=== PATIENT | female | born 1955 | race Caucasian/White ===

== ENCOUNTER 2018-08-09 14:55 | Emergency (ER) | payer BC ==
[~2018-08-09] VITALS: Ht 165.1 cm; Wt 70.1 kg
[2018-08-09 15:05] VITALS: Ht 165.1 cm; Wt 70.1 kg
[2018-08-09] MEDS ORDERED: KETOROLAC 60 MG INJ IM STA (16:41)
--- NOTE | 2018-08-09 17:50 | ERD ---
ER Documentation Chief Complaint Chief Complaint cough and sorethroat upper back pain x3 wks HPI 62-year-old female presents with complaint of cough, sore throat and upper back pain for the past 3 weeks. Nuys any treatments. Patient denies any fevers. Denies wheezing, shortness of breath, chest pain stridor, respiratory distress. Denies allergies. Denies medical problems. ROS All systems reviewed and are negative except as per history of present illness. Allergies Allergies: Coded Allergies: No Known Allergy (Unverified , 08/09/18) PMhx/Soc Hx Alcohol Use: No Hx Substance Use: No Hx Tobacco Use: No Smoking Status: Never smoker FmHx Family History: No diabetes, No coronary disease, No other Physical Exam Vitals Vital Signs Date Temp Pulse Resp B/P (MAP) Pulse Ox O2 O2 Flow FiO2 Time Delivery Rate 08/09/18 99.9 111 18 132/81 95 15:05 (98) Physical Exam Const: No acute distress Head: Atraumatic Eyes: Normal Conjunctiva ENT: Normal External Ears, Nose and Mouth. Neck: Full range of motion. No meningismus. Resp: Clear to auscultation bilaterally Cardio: Regular rate and rhythm, no murmurs Abd: Soft, non tender, non distended. Normal bowel sounds Skin: No petechiae or rashes Back: No midline or flank tenderness Ext: No cyanosis, or edema Neur: Awake and alert Psych: Normal Mood and Affect Results 24 hrs Current Medications Medications Dose Sig/Kaycee Start Time Status Last (Trade) Ordered Route PRN Stop Time Admin Dose Reason Admin Ketorolac 60 mg ONCE STAT 08/09/18 DC 08/09/18 Tromethamine IM 16:41 08/09/18 16:55 (Toradol) 16:45 Procedures/MDM DIAGNOSTIC IMAGING REPORT Patient: LINO TATE : 1955 Age: 62 Sex: F MR #: [id number] DOS: 08/09/18 1641 Ordering MD: SNOW YOON Location: [facility] Room/Bed: PROCEDURE: XR Chest. CLINICAL INDICATION: cough, anterior chest wall pain TECHNIQUE: Single frontal view of the chest COMPARISON: None FINDINGS: Prominent interstitial markings are seen bilaterally. No focal pulmonary consolidation. Tortuous aorta is noted with atherosclerotic calcifications. Cardiac and mediastinal contours otherwise unremarkable. There is no pleural effusion or pneumothorax. Spinal degenerative changes noted. No acute bony abnormality identified. Remaining soft tissues unremarkable. IMPRESSION: Prominent interstitial markings bilaterally, which may be chronic. However, findings can also be seen with a viral or atypical infectious process. No focal consolidation. RPTAT:HCLE shey Ko, Physician Date Time Electronically viewed and signed by shey Ko Physician on 08/09/2018 17:38 cE/ CC: SNOW YOON [phone] Given the length of the illness as well as the x-ray findings, patient will be treated for possible pneumonia with azithromycin. I have low suspicion for strep throat based on history and exam findings, as well as patient not meeting centor criteria for rapid strep testing. I have low suspicion for bacterial sinusitis, pneumonia, tuberculosis, meningitis, pneumothorax, PE, aspirated foreign body, respiratory distress, acute heart failure or other life threatening etiology based on patient history and exam findings. Most likely etiology is viral URI and no further tests are necessary. Patient given rx for promethazine with codeine and ibuprofen. Patient advised to rest and stay well hydrated. Patient discharged with strict ER precautions. Patient advised to follow up with PMD. All questions answered at discharge. Departure Diagnosis: Primary Impression: URI (upper respiratory infection) URI type: unspecified viral URI Qualified Codes: J06.9 - Acute upper respiratory infection, unspecified Condition: Stable SNOW YOON Aug 09, 2018 17:50
[2018-08-09] MEDS ORDERED: PROM5SYR2 PO (17:51)
[2018-08-09] MEDS ORDERED: AZIT250T PO (17:52)
[2018-08-09] MEDS ORDERED: IBUP-1542 PO (17:52)
[2018-08-09 17:59] VITALS: BP 136/73; PULSE 87; RESP 18
== END 2018-08-09 18:00 | disposition home or self-care (01) ==
LOC: FTE 14:55
DX: J06.9 Acute upper respiratory infection, unspecified (principal)
CPT/HCPCS: 71045; 87880; 96374; 99284; J1885